=== PATIENT | female | born 1965 | race Caucasian/White ===

== ENCOUNTER 2017-01-15 18:14 | Emergency (ER) | payer OTHER ==
[2017-01-15 18:34] VITALS: BP 114/82
--- NOTE | 2017-01-15 18:47 | UC ---
FLU HPI - HPI Summary HPI Summary: sore throat and ear pain for a couple of days is concerned that when she flies for a business trip this week it will all get worse - History of Current Complaint Chief Complaint: UCGeneralIllness Stated Complaint: SORE THROAT,EARS Time Seen by Provider: 01/15/17 18:30 Hx Obtained From: Patient Hx Last Menstrual Period: 03/19/14 ?: No Onset/Duration: Sudden Onset Severity Currently: Mild Severity Initially: Mild Associated Signs & Symptoms: Positive: Myalgia, Cough, Sore Throat, Nasal Congestion - Allergy/Home Medications Allergies/Adverse Reactions: Allergies Allergy/AdvReac Type Severity Reaction Status Date / Time No Known Allergies Allergy Verified 01/15/17 18:22 PMH/Surg Hx/FS Hx/Imm Hx Previously Healthy: No Cardiovascular History Of: Reports: Hypertension - Surgical History Surgical History: Yes Surgery Procedure, Year, and Place: 2 c sections - Family History Known Family History: Positive: None - Social History Occupation: Employed Full-time Lives: With Family Alcohol Use: Rare Substance Use Type: None Smoking Status (MU): Never Smoked Tobacco - Immunization History Most Recent Influenza Vaccination: 2016 Review of Systems Constitutional: Negative Skin: Negative Eyes: Negative ENT: Sore Throat, Ear Ache Respiratory: Cough Cardiovascular: Negative Gastrointestinal: Negative Genitourinary: Negative Motor: Negative Neurovascular: Negative Musculoskeletal: Negative Neurological: Negative Psychological: Negative All Other Systems Reviewed And Are Negative: Yes Physical Exam Triage Information Reviewed: Yes Appearance: Well-Appearing, No Pain Distress, Well-Nourished, Ill-Appearing Vital Signs: Initial Vital Signs Temp 99.2 F 01/15/17 18:24 Pulse 92 01/15/17 18:24 Resp 18 01/15/17 18:24 BP 114/82 01/15/17 18:24 Pulse Ox 99 01/15/17 18:24 Vital Signs Reviewed: Yes Eye Exam: Normal Eyes: Positive: Conjunctiva Clear ENT Exam: Normal ENT: Positive: Normal ENT inspection, Hearing grossly normal, Pharynx normal, TMs normal. Negative: Nasal congestion, Nasal drainage, Tonsillar swelling, Tonsillar exudate, Trismus, Muffled/hoarse voice Dental Exam: Normal Neck exam: Normal Neck: Positive: Supple, Nontender, No Lymphadenopathy Respiratory Exam: Normal Respiratory: Positive: Chest non-tender, Lungs clear, Normal breath sounds, No respiratory distress, No accessory muscle use, Respiratory distress Cardiovascular Exam: Normal Cardiovascular: Positive: RRR, No Murmur, Pulses Normal, Brisk Capillary Refill Musculoskeletal Exam: Normal Musculoskeletal: Positive: Strength Intact, ROM Intact, No Edema Neurological Exam: Normal Neurological: Positive: Alert, Muscle Tone Normal Psychological Exam: Normal Skin Exam: Normal Diagnostics - Laboratory Diagnostic Studies Completed/Ordered: RST(-) FLU A/B(-) Flu Course/Dx - Course Course Of Treatment: increase fluids, mucinex d, tylenol, ibuprofen---pt will bring z-pack on trip in the event sx do not resolve or worsen - Differential Dx/Diagnosis Differential Diagnosis/HQI/PQRI: Influenza, Pneumonia, RSV, Upper Respiratory Infection Provider Diagnoses: Viral syndrome Discharge - Discharge Plan Condition: Stable Disposition: HOME Prescriptions: Azithromycin TAB* [Zithromax TAB (Z-VICKIE) 250 mg #6 tabs] 2 tab PO .TODAY, THEN 1 DAILY #1 vickie Patient Education Materials: Decongestant/Expectorant (By mouth), Viral Syndrome (ED) Referrals: Nikolas Ortiz MD [Primary Care Provider] - If Needed
== END 2017-01-15 19:31 | disposition home or self-care (01) ==
LOC: UCEAST 18:14
DX: B34.9 Viral infection, unspecified (principal)
CPT/HCPCS: 87502; 87651; 99212; G0463